=== PATIENT | female | born 1990 | race American Indian/Alaskan Native ===

== ENCOUNTER 2020-01-21 04:51 | Outpatient (CLI) | payer MEDICAID ==
[2020-01-21] MEDS ORDERED: LACTATED RINGERS 500 ML IV ONE (05:09)
[2020-01-21] MEDS ORDERED: ACETAMINOPHEN 500 MG TAB PO ONE (05:48)
--- NOTE | 2020-01-21 06:56 | Cat Scan Report ---
CT HEAD WITHOUT CONTRAST HISTORY: MAIN: Fall, POSTERIOR HEAD PAIN. COMPARISON: None TECHNIQUE: CT imaging of the head was performed in the axial, sagittal, and coronal projections and bone algori thm in axial projection in the soft tissue algorithm. All CT scans at this location are performed using CT dose reduction for ALARA by means of automated e xposure control. CONTRAST: None. FINDINGS: Cerebral and Cerebellar Hemispheres: No evidence of mass or mass effect. No midline shift. No acute hemorrhage. No acute cortical infarction. No extra-axial fluid collection. Ventricles: Normal in size and configuration for age. Osseous Structures: No significant abnormality. Visualized Paranasal Sinuses: No significant abnormality. Additional Findings: None IMPRESSION: 1. No acute intracranial abnormality. NOTE: Acute infarct may not be visible by noncontrast CT. Signer Name: Elier Luu MD Signed: 01/21/2020 6:52 AM Workstation Name: [id number]
--- NOTE | 2020-01-21 08:02 | Ultrasound Report ---
ULTRASOUND OBSTETRIC Indication: 3rd trimester fall Findings: There is a single, living intrauterine . heart rate is identified at 140 bpm There is a crescent shaped hypoechoic fluid collection with color-flow present along the lower uterin e segment. Impression: [place]-shaped hypoechoic fluid collection with color-flow as noted, recommend clinical correlation and follow-up imaging Signer Name: Elier Luu MD Signed: 01/21/2020 7:58 AM Workstation Name: [id number]
[2020-01-21] MEDS ORDERED: LACTATED RINGERS 2,000 ML ONE (09:57)
[2020-01-21 10:03] VITALS: BP 89/51
[2020-01-21 10:23] LABS: Basophils % (Auto) 0.2 % (0.0-1.8); Eosinophils # (Auto) 0.1 K/mm3 (0.0-0.4); Eosinophils % (Auto) 0.7 % (0.0-4.3); Hematocrit 27.3 % (30.3-42.9); Hemoglobin 9.6 gm/dl (10.1-14.3); Lymphocytes # (Auto) 1.4 K/mm3 (1.2-5.4); Lymphocytes % (Auto) 12.1 % (13.4-35.0); Mean Corpuscular HGB Conc 35 % (30-34); Mean Corpuscular Volume 92 fl (79-97); Monocytes # (Auto) 0.6 K/mm3 (0.0-0.8); Monocytes % (Auto) 5.6 % (0.0-7.3); Platelet Count 205 K/mm3 (140-440); Red Blood Count 2.98 M/mm3 (3.65-5.03); Red Cell Distribution Width 12.7 % (13.2-15.2)
--- NOTE | 2020-01-21 11:07 | Ultrasound Report ---
Biophysical profile. HISTORY: Pain status post fall. FINDINGS: Biophysical profile is normal at 8/8. heart tones are 125 bpm. Signer Name: Lazaro Steward MD Signed: 01/21/2020 11:03 AM Workstation Name: [id number]
[2020-01-21] MEDS ORDERED: MORPHINE 2 MG/1 ML INJ IV ONE (11:53)
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
== END 2020-01-21 13:45 | disposition home or self-care (01) ==
LOC: TRG 04:51
PROVIDERS: ATTEND Obstetrics & Gynecology
DX: O26.893 Other specified pregnancy related conditions, third trimester (principal); R10.2 Pelvic and perineal pain; R51 Headache; M54.9 Dorsalgia, unspecified; M79.659 Pain in unspecified thigh; O47.03 False labor before 37 completed weeks of gestation, third trimester; O10.913 Unspecified pre-existing hypertension complicating pregnancy, third trimester; O99.333 Smoking (tobacco) complicating pregnancy, third trimester; F17.200 Nicotine dependence, unspecified, uncomplicated; Z3A.31 31 weeks gestation of pregnancy; W10.8XXA Fall (on) (from) other stairs and steps, initial encounter; Y93.89 Activity, other specified; Y92.89 Other specified places as the place of occurrence of the external cause; Y99.8 Other external cause status
CPT/HCPCS: 36415; 70450; 76815; 76819; 85025; 86850; 86900; 86901; 96374; J2270; J7120

== ENCOUNTER 2020-03-18 20:53 | Inpatient (IN) | payer MEDICAID ==
[2020-03-19] MEDS ORDERED: DINOPROSTONE 10 MG VAG SUPP VG ONE (00:05)
[2020-03-19] MEDS ORDERED: ePHEDrine SULFATE 50 MG/1 ML INJ IV PRN ×2 (00:24→07:32)
[2020-03-19] MEDS ORDERED: NalbUPHINE 10 MG/1 ML INJ IV PRN (00:24)
[2020-03-19] MEDS ORDERED: TERBUTALINE 1 MG/1 ML INJ SUB-Q PRN (00:24)
[2020-03-19] MEDS ORDERED: fentaNYL 100 MCG/2 ML INJ IV PRN (00:24)
[2020-03-19] MEDS ORDERED: PROMETHAZINE 25 MG TAB PO PRN ×2 (00:24→08:33)
[2020-03-19] MEDS ORDERED: MINERAL OIL 30 ML ORAL LIQD PO PRN (00:24)
[2020-03-19] MEDS ORDERED: ONDANSETRON 4 MG/2 ML INJ IV PRN ×2 (00:24→08:33)
[2020-03-19] MEDS ORDERED: LIDOCAINE (2%) 20 MG/1 ML VIAL 20 ML MDV INFILTRATI ONE ×2 (00:24→06:36)
[2020-03-19] MEDS ORDERED: BUTORPHANOL 2 MG/1 ML INJ IV PRN ×2 (00:24)
[2020-03-19] MEDS ORDERED: TERBUTALINE 1 MG/1 ML INJ IVP PRN (00:24)
[2020-03-19] MEDS: LACTATED RINGERS 1,000 ML IV SCH ×2 (00:25→07:43)
--- NOTE | 2020-03-19 00:32 | History and Physical Report ---
History of Present Illness Date of examination: 03/19/20 Date of admission: 03/18/20 20:53 Chief complaint: IOL for chTN History of present illness: This is a 29 yo at 39 weeks. She is patient of [facility]. SHe was recommneded by Fredy lerma IOL for chronic HTN. Patient had +trich and delivered. She was seen by cardiology with hx of MA at age 21 and was cleared by cardiology. Patient was seen by vascular for suspected superficial venous thrombosis. Patient sustained a fall down a flight of stairs doing this . Past History Past Medical History: heart disease (MA at age 21), high cholesterol Past Surgical History: no surgical history [employer] History: trichomonas Family/Genetic History: none Social history: single. denies: smoking, alcohol abuse, prescription drug abuse - Obstetrical History Expected Date of Delivery: 03/20/20 Actual Gestation: 39 Week(s) 6 Day(s) : 3 Para: 1 Hx # Term Pregnancies: 1 Number of Pregnancies: 0 Spontaneous Abortions: 0 Induced : 0 Number of Living Children: 1 Medications and Allergies Allergies Allergy/AdvReac Type Severity Reaction Status Date / Time No Known Allergies Allergy Verified 01/21/20 05:09 Home Medications Medication Instructions Recorded Confirmed Last Taken Type Vitamin 1 dose PO QDAY 03/19/20 03/19/20 03/18/20 10:00 History Active Meds: Active Medications Lactated Ringer's (Lactated Ringers) 1,000 mls @ 125 mls/hr IV DIRECT JARRETT Review of Systems All systems: negative - Vital Signs Vital signs: Vital Signs Pulse BP 88 125/69 03/18/20 22:51 03/18/20 22:51 Temp Pulse Resp BP Pulse Ox 80 103/63 03/19/20 00:24 03/19/20 00:24 - Physical Exam Breasts: Positive: normal Cardiovascular: Regular rate, Normal S1 Lungs: Positive: Clear to auscultation, Normal air movement Abdomen: Positive: normal appearance, soft, normal bowel sounds. Negative: distention, tenderness, guarding Genitourinary (Female): Positive: normal external genitalia, normal perenium Vulva: both: normal Vagina: Positive: normal moisture Uterus: Positive: normal size, normal contour Anus/Rectum: Positive: normal perianal skin Extremities: Positive: normal Deep Tendon Reflex Grade: Normal +2 - Obstetrical FHR: category 1 Results All other labs normal. Assessment and Plan A/P IUP 39+6 weeks cHTN obesity hx of MA admit with IVF and labs initial start with cervidil
[2020-03-19] MEDS ORDERED: ZOLPIDEM 5 MG TAB PO PRN (00:33)
[2020-03-19 00:58] LABS: Hematocrit 32.9 % (30.3-42.9); Hemoglobin 11.4 gm/dl (10.1-14.3); Mean Corpuscular HGB Conc 35 % (30-34); Mean Corpuscular Volume 93 fl (79-97); Platelet Count 232 K/mm3 (140-440); Red Blood Count 3.55 M/mm3 (3.65-5.03); Red Cell Distribution Width 14.9 % (13.2-15.2)
[2020-03-19] MEDS ORDERED: LACTATED RINGERS 1,000 ML IV SCH (01:00)
[2020-03-19] MEDS ORDERED: OXYTOCIN DRIP 30 UNITS/500 ML BAG IV SCH (01:00)
[2020-03-19] MEDS ORDERED: AMPICILLIN/NS 2 GM/100 ML 2 GM/100 ML BAG IV ONE (05:43)
[2020-03-19] MEDS ORDERED: DEXMEDETOMIDINE 200 MCG/2 ML VIAL IV ONE (07:13)
[2020-03-19] MEDS ORDERED: NALOXONE 2 MG/2 ML INJ IV PRN (07:32)
--- NOTE | 2020-03-19 07:36 | Anesthesia Consultation ---
Anesthesia Consult and Med Hx Date of service: 03/19/20 - Airway Anesthetic Teeth Evaluation: Good, Partials Mental/Hyoid Distance: Adequate Mallampati Class: Class II Intubation Access Assessment: Good - Pulmonary Exam CTA: Yes - Cardiac Exam Cardiac Exam: RRR - Pre-Operative Health Status ASA Pre-Surgery Classification: ASA2, Emergency Proposed Anesthetic Plan: Epidural - Pulmonary Hx Asthma: No COPD: No Hx Pneumonia: No - Cardiovascular System Hx Hypertension: Yes Hx Heart Attack/AMI: Yes ([place] at 21, ) - Central Nervous System Hx Seizures: No Hx Psychiatric Problems: No - Endocrine Hx Renal Disease: No Hx End Stage Renal Disease: No Hx Hypothyroidism: No Hx Hyperthyroidism: No - Hematic Hx Anemia: Yes Hx Sickle Cell Disease: No - Other Systems Hx Alcohol Use: No
--- NOTE | 2020-03-19 07:38 | Anesthesia Day of Surgery ---
Anesthesia Day of Surgery - Day of Surgery Patient Examined: Yes Patient H&P Reviewed: Yes Patient is NPO: Yes
--- NOTE | 2020-03-19 07:39 | Progress Note ---
Labor Epidural - Labor Epidural Start Time: 07:15 Stop Time: 07:21 Performed by:: CHRISTAL ODOM Procedure: Patient is requesting a laboring epidural for laboring pain. Patient IDed, H&P reviewed, all questions and concerns were answered, and consent was signed. Timeout was performed at bedside. Patient in sitting position. Sterile prep and drape was performed. 3 ml of 1% lidocaine skin wheal at L 3- L 4. 18-gauge Touhy epidural needle was advanced to loss of resistance with air technique. Negative CSF negative blood. Epidural catheter advanced to 15 centimeters. Negative aspiration negative test dose. Sterile dressing applied. Patient tolerated procedure.
[2020-03-19] MEDS ORDERED: fentaNYL-BUPIV 2 MCG/ML-0.125% 200 MCG/100 ML BAG EPIDURAL SCH (08:00)
--- NOTE | 2020-03-19 08:28 | Procedure Note ---
OB Delivery Note - Delivery Date of Delivery: 03/19/20 Surgeon: ARYA GUTIERREZ Estimated blood loss: other (400cc) - Vaginal Delivery presentation: vertex Delivery position: OA Delivery induction: cervidil Delivery augmentation: rupture of membranes Delivery monitor: external FHT, external uterine Route of delivery: Delivery placenta: spontaneous Delivery cord: nuchal cord (tight x2), 3 umbilical vessels Episiotomy: none Delivery laceration: 1st degree Delivery repair: vicryl Anesthesia: epidural Delivery comments: Pt progressed to complete/complete/+1 and pushed to deliver a viable female over intact perineum via spontaneous vaginal delivery under epidural anesthesia. Head delivered MOR. It was noted a double tight nuchal cord x2 and reduced after clamped and cut The shoulders and body delivered . was bulb suctioned at delivery. Cord was clamped and cut and handed to NICU staff in attendance. Placenta delivered spontaneously. Survey of perineum reveals first degree lac and periurethral repaired with 2-0 vicryl. - A at 1 minute: 8 at 5 minutes: 9 Gender: Female (5 pound 13 oz)
[2020-03-19] MEDS: OXYTOCIN 20 UNIT/1000ML DRIP 20 UNITS/1,000 ML BAG IV SCH ×2 (08:30→09:09)
[2020-03-19] MEDS ORDERED: WITCH HAZEL/ GLYCERIN PAD TP PRN (08:33)
[2020-03-19] MEDS ORDERED: KETOROLAC 30 MG/1 ML INJ IV PRN (08:33)
[2020-03-19] MEDS ORDERED: MAGNESIUM HYDROXIDE (MOM) ORAL LIQD UDC PO PRN (08:33)
[2020-03-19] MEDS ORDERED: HYDROcodone/ACETAMINOPHEN 5-325 MG TAB PO PRN (08:33)
[2020-03-19] MEDS ORDERED: PROMETHAZINE 25 MG RECT SUPP PR PRN (08:33)
[2020-03-19] MEDS ORDERED: ACETAMINOPHEN 325 MG TAB PO PRN (08:33)
[2020-03-19] MEDS ORDERED: LANOLIN/ZINC/DIMETHICONE (LANSINOH) 7 GM TP PRN (08:33)
[2020-03-19] MEDS ORDERED: diphenhydrAMINE 25 MG CAP PO PRN (08:33)
[2020-03-19] MEDS ORDERED: oxyCODONE /ACETAMINOPHEN 5-325MG TAB PO PRN (08:33)
[2020-03-19] MEDS ORDERED: PRENATAL VIT27-FE FUMARATE-FOLIC ACID VIT TAB PO SCH (10:00)
--- NOTE | 2020-03-19 10:44 | Post Anesthesia Evaluation ---
- Post Anesthesia Evaluation Patient Participated: Yes Airway Patent: Yes Stable Respiratory Function: Yes Nausea/Vomiting: No Temp > 96.8F: Yes Pain Manageable: Yes Adequeate Hydration: Yes Anesthesia Complications: No Block Receding Appropriately: Yes Patient on Ventilator: No
[2020-03-19] MEDS: IBUPROFEN 600 MG TAB PO SCH ×2 (18:03→23:59)
[2020-03-19 20:59] LABS: Hematocrit 28.6 % (30.3-42.9); Hemoglobin 9.6 gm/dl (10.1-14.3)
[2020-03-19] MEDS: DOCUSATE SODIUM 100 MG CAP PO SCH (22:06)
[2020-03-19] MEDS: SENNOSIDES/DOCUSATE SODIUM 8.6/50 MG TAB PO SCH (22:23)
[2020-03-20] MEDS: IBUPROFEN 600 MG TAB PO SCH ×3 (06:09→17:41)
[2020-03-20] MEDS ORDERED: MEASLES, MUMPS & RUBELLA 12,500 UNIT/0.5 ML VACCINE SUB-Q ONE (08:00)
[2020-03-20] MEDS ORDERED: DIPHtheria,PERTUSSIS(ACELL),TETANUS VACCINE/PF 0.5 ML VIAL IM ONE (08:00)
--- NOTE | 2020-03-20 08:33 | Progress Note ---
Assessment and Plan A: PPD1 s/p Vital signs stable Acute anemia due to blood loss P: Ferrous sulfate supplementation Routine pp care Anticipate d/c to home on PPD2 Subjective - Subjective Date of service: 03/20/20 Principal diagnosis: s/p Interval history: PPD1 s/p Patient reports: appetite normal, voiding normally, pain well controlled, ambulating normally [place]: doing well Objective - Vital Signs Latest vital signs: Vital Signs Temp Pulse Resp BP Pulse Ox 03/20/20 06:09 20 03/19/20 23:59 20 03/19/20 23:38 98.2 F 72 20 106/53 97 03/19/20 20:10 98.4 F 82 18 107/47 98 03/19/20 16:00 98.1 F 81 18 90/44 99 03/19/20 10:06 67 100 03/19/20 10:05 72 113/64 03/19/20 10:01 68 100 03/19/20 09:56 64 99 03/19/20 09:51 66 100 03/19/20 09:50 69 109/59 03/19/20 09:46 63 99 03/19/20 09:41 66 97 03/19/20 09:36 69 99 03/19/20 09:35 67 103/57 03/19/20 09:31 73 99 03/19/20 09:26 82 99 03/19/20 09:21 75 100 03/19/20 09:20 77 108/56 03/19/20 09:16 76 99 03/19/20 09:11 80 99 03/19/20 09:06 76 99 03/19/20 09:05 86 116/62 03/19/20 09:01 79 99 03/19/20 08:56 75 99 03/19/20 08:51 74 100 03/19/20 08:50 79 108/57 03/19/20 08:46 85 99 03/19/20 08:41 75 99 03/19/20 08:36 85 118/62 100 Intake and Output 03/19/20 03/20/20 03/20/20 23:59 07:59 15:59 Intake Total 480 600 Output Total 500 Balance -20 600 Intake: Oral 240 Intake, Free Water 480 360 Output: Urine 500 Void 500 Other: Total, Intake Amount 240 Total, Output Amount 500 # Voids Void 1 - Exam Lungs: Present: Normal air movement Abdomen: Present: soft. Absent: distention Uterus: Present: firm, fundal height below umbilicus. Absent: bogginess Extremities: Present: normal - Labs Labs: Abnormal lab results 03/19/20 Range/Units 20:47 Hgb 9.6 L (10.1-14.3) gm/dl Hct 28.6 L (30.3-42.9) %
[2020-03-20] MEDS: FERROUS SULFATE 325 MG TAB PO SCH (11:57)
[2020-03-20] MEDS: DOCUSATE SODIUM 100 MG CAP PO SCH (11:58)
[2020-03-20] MEDS: SENNOSIDES/DOCUSATE SODIUM 8.6/50 MG TAB PO SCH (22:00)
[2020-03-21] MEDS: FERROUS SULFATE 325 MG TAB PO SCH (00:38)
[2020-03-21] MEDS: IBUPROFEN 600 MG TAB PO SCH ×2 (00:38→05:50)
[2020-03-21] MEDS: DOCUSATE SODIUM 100 MG CAP PO SCH (00:38)
--- NOTE | 2020-03-21 07:50 | Progress Note ---
Assessment and Plan A: PPD2 s/p Vital signs stable Acute anemia due to blood loss P: Ferrous sulfate supplementation Routine pp care d/c to home today Subjective - Subjective Date of service: 03/21/20 Principal diagnosis: s/p Interval history: PPD2 s/p Patient reports: appetite normal, voiding normally, pain well controlled, ambulating normally [place]: doing well, nursing well Objective - Vital Signs Latest vital signs: Vital Signs Temp Pulse Resp BP BP Pulse Ox 03/21/20 06:50 18 03/21/20 05:50 18 03/21/20 01:38 18 03/21/20 00:38 18 03/21/20 00:30 98.5 F 78 17 114/57 97 03/21/20 00:00 98.7 F 78 18 144/57 98 03/20/20 16:47 97.9 F 77 18 113/64 97 03/20/20 08:11 75 104/65 97 Intake and Output 03/20/20 03/20/20 03/21/20 15:59 23:59 07:59 Other: # Voids Void 1 1 - Exam Lungs: Present: Normal air movement Abdomen: Present: soft. Absent: distention Uterus: Present: firm, fundal height below umbilicus. Absent: bogginess Extremities: Present: normal
--- NOTE | 2020-03-21 07:53 | Discharge Summary ---
Providers - Providers Date of Admission: 03/18/20 20:53 Date of discharge: 03/21/20 Attending physician: ARYA GUTIERREZ MD Primary care physician: ARYA GUTIERREZ MD Hospitalization Reason for admission: induction of labor (for chronic HTN with history SD at age 21), IUP at term Delivery: Laceration: 1st degree Other procedures: none complications: none Discharge diagnosis: IUP at term delivered Hospital course: Pt arrived for IOL secondary to cHTN. She progressed to . course uncomplicated. Condition at discharge: Good Disposition: DC-01 TO HOME OR SELFCARE Plan - Discharge Medications Prescriptions: Ibuprofen [Motrin] 600 mg PO Q8H PRN #30 tablet PRN Reason: Pain - Provider Discharge Summary Activity: routine, no sex for 6 weeks, no heavy lifting 4 weeks, no strenuous exercise Diet: routine Instructions: routine Additional instructions: [] Smoking cessation referral if applicable(refer to patient education folder for contact #) [] Refer to [facility] Booklet Call your doctor immediately for: * Fever > 100.5 * Heavy vaginal bleeding ( >1 pad per hour) * Severe persistent headache * Shortness of breath * Reddened, hot, painful area to leg or breast * Drainage or odor from incision. * Keep incision clean and dry at all times and follow doctor's instructions regarding bathing/showering - Follow up plan Follow up: ARYA GUTIERREZ MD [Primary Care Provider] - 7 Days Forms: [facility] Discharge Summary
[2020-03-21 12:56] VITALS: BP 123/66
== END 2020-03-21 14:00 | disposition home or self-care (01) | DRG 774 ==
LOC: LD 20:53 → OB 03-19 10:37
PROVIDERS: ADMIT Obstetrics & Gynecology; ATTEND Obstetrics & Gynecology
PROC: 10E0XZZ Delivery of Products of Conception, External Approach (ICD-10-PCS; principal; 2020-03-19)
PROC: 3E0R3BZ Introduction of Anesthetic Agent into Spinal Canal, Percutaneous Approach (ICD-10-PCS; 2020-03-19)
PROC: 00HU33Z Insertion of Infusion Device into Spinal Canal, Percutaneous Approach (ICD-10-PCS; 2020-03-19)
PROC: 0HQ9XZZ Repair Perineum Skin, External Approach (ICD-10-PCS; 2020-03-19)
PROC: 3E0P7VZ Introduction of Hormone into Female Reproductive, Via Natural or Artificial Opening (ICD-10-PCS; 2020-03-19)
PROC: 3E0234Z Introduction of Serum, Toxoid and Vaccine into Muscle, Percutaneous Approach (ICD-10-PCS; 2020-03-20)
PROC: 3E0134Z Introduction of Serum, Toxoid and Vaccine into Subcutaneous Tissue, Percutaneous Approach (ICD-10-PCS; 2020-03-20)
DX: O69.81X0 Labor and delivery complicated by cord around neck, without compression, not applicable or unspecified (principal); O10.92 Unspecified pre-existing hypertension complicating childbirth; O99.214 Obesity complicating childbirth; E66.9 Obesity, unspecified; Z3A.39 39 weeks gestation of pregnancy; Z37.0 Single live birth; Z23 Encounter for immunization; O70.0 First degree perineal laceration during delivery; O90.81 Anemia of the puerperium; D62 Acute posthemorrhagic anemia; I25.2 Old myocardial infarction
CPT/HCPCS: 36415; 59200; 85014; 85018; 85027; 86592; 86850; 86900; 86901; 88307; 90715; G0378; J0290; J0595; J2405; J2590; J3490; J7120

== ENCOUNTER 2020-05-27 04:19 | Observation (INO) | payer MEDICAID ==
[2020-05-27] MEDS ORDERED: levETIRAcetam 1000 MG/NS 0.75% 1,000 MG/100 ML BAG IV ONE (04:50)
[2020-05-27 05:28] LABS: Basophils % (Auto) 0.6 % (0.0-1.8); Eosinophils # (Auto) 0.1 K/mm3 (0.0-0.4); Eosinophils % (Auto) 1.5 % (0.0-4.3); Hematocrit 39.9 % (30.3-42.9); Hemoglobin 13.3 gm/dl (10.1-14.3); Lymphocytes # (Auto) 1.6 K/mm3 (1.2-5.4); Lymphocytes % (Auto) 27.1 % (13.4-35.0); Mean Corpuscular HGB Conc 33 % (30-34); Mean Corpuscular Volume 97 fl (79-97); Monocytes # (Auto) 0.4 K/mm3 (0.0-0.8); Platelet Count 217 K/mm3 (140-440); Red Blood Count 4.13 M/mm3 (3.65-5.03); Red Cell Distribution Width 13.4 % (13.2-15.2)
--- NOTE | 2020-05-27 05:35 | Cat Scan Report ---
CT head without contrast INDICATION : Seizures TECHNIQUE: Axial imaging performed from the skull apex through the skull base without the use of con trast. All CT examinations performed at this facility utilize dose modulation, iterative reconstruct ion or weight-based dosing, when appropriate, to reduce radiation dose to as low as reasonably achiev able. COMPARISON: 01/21/2020 FINDINGS: No acute intracranial hemorrhage or parenchymal abnormality. Ventricles are normal in si ze and appear symmetric. Soft tissues including the orbits appear normal. No acute osseous abnorm ality. Sinuses and mastoid air cells are clear. IMPRESSION: No acute abnormality. Signer Name: Suresh Cardenas MD Signed: 05/27/2020 5:30 AM Workstation Name: [email or web address]
[2020-05-27 06:36] LABS: BUN/Creatinine Ratio 6; Blood Urea Nitrogen 4 mg/dL (7-17); Calcium 8.8 mg/dL (8.4-10.2); Hemolysis Index 16
--- NOTE | 2020-05-27 07:47 | Emergency Department Report ---
ED Seizure HPI - General Chief Complaint: Seizure Stated Complaint: SEIZURE Time Seen by Provider: 05/27/20 06:20 Source: EMS Mode of arrival: Stretcher Limitations: Altered Mental Status - History of Present Illness Initial Comments: 30-year-old female with a history of hypertension and AK at age 21 and status post vaginal delivery March 19, 2020 as per medical record presents to the hospital status post seizures at home and in route to the hospital. Patient had a seizure at home and 2 seizures in route. Patient provided Ativan 2 mg IV. No previous history of seizures reported. Patient was sedated upon arrival to the ED and is sedated at time of my initial examination. - Related Data Home Medications Medication Instructions Recorded Confirmed Last Taken Vitamin 1 dose PO QDAY 03/19/20 03/19/20 03/18/20 10:00 Previous Rx's Medication Instructions Recorded Last Taken Type Ibuprofen [Motrin] 600 mg PO Q8H PRN #30 tablet 03/19/20 Unknown Rx Allergies Allergy/AdvReac Type Severity Reaction Status Date / Time No Known Allergies Allergy Verified 01/21/20 05:09 ED Review of Systems ROS: Stated complaint: SEIZURE Other details as noted in HPI Comment: All other systems reviewed and negative ED Past Medical Hx - Past Medical History Previous Medical History?: Yes Hx Hypertension: Yes Hx Heart Attack/AMI: Yes ([place] at 21, ) Hx Congestive Heart Failure: No Hx Diabetes: No Hx Deep Vein Thrombosis: No Hx Renal Disease: No Hx Sickle Cell Disease: No Hx Seizures: No Hx Asthma: No Hx COPD: No Hx HIV: No - Social History Smoking Status: Unknown if ever smoked - Medications Home Medications: Home Medications Medication Instructions Recorded Confirmed Last Taken Type Ibuprofen [Motrin] 600 mg PO Q8H PRN #30 tablet 03/19/20 Unknown Rx Vitamin 1 dose PO QDAY 03/19/20 03/19/20 03/18/20 10:00 History ED Physical Exam - General Limitations: Altered Mental Status - Other Other exam information: General: No acute distress Head: Atraumatic Eyes: normal appearance, pupils equal and reactive to light ENT: Moist mucous membranes Neck: Normal appearance, no midline tenderness Chest: Clear to auscultation bilaterally CV: Regular rate and rhythm Abdomen: Soft, normal bowel sounds, nontender, nondistended, no rebound or guarding Back: Normal inspection Extremity: Normal inspection, full range of motion Neuro: Lethargic/sedated, withdraws all extremities to noxious stimuli. Psych: Appropriate behavior Skin: No rash ED Course Vital Signs 05/27/20 05/27/20 05/27/20 04:51 05:45 06:00 Temperature 97.7 F Pulse Rate 86 69 Respiratory 18 18 18 Rate Blood Pressure 105/70 Blood Pressure 97/61 [Left] O2 Sat by Pulse 97 100 100 Oximetry 05/27/20 05/27/20 05/27/20 06:15 06:54 08:09 Temperature Pulse Rate 73 69 69 Respiratory 18 18 20 Rate Blood Pressure Blood Pressure 97/65 97/61 129/84 [Left] O2 Sat by Pulse 100 99 Oximetry ED Medical Decision Making - Lab Data Result diagrams: 05/27/20 05:19 05/27/20 05:19 Lab Results 05/27/20 05/27/20 05/27/20 Range/Units 05:19 05:19 05:19 WBC 5.9 (4.5-11.0) K/mm3 RBC 4.13 (3.65-5.03) M/mm3 Hgb 13.3 (10.1-14.3) gm/dl Hct 39.9 (30.3-42.9) % MCV 97 (79-97) fl MCH 32 (28-32) pg MCHC 33 (30-34) % RDW 13.4 (13.2-15.2) % Plt Count 217 (140-440) K/mm3 Lymph % (Auto) 27.1 (13.4-35.0) % [place] % (Auto) 7.0 (0.0-7.3) % Eos % (Auto) 1.5 (0.0-4.3) % Baso % (Auto) 0.6 (0.0-1.8) % Lymph # 1.6 (1.2-5.4) K/mm3 [place] # 0.4 (0.0-0.8) K/mm3 Eos # 0.1 (0.0-0.4) K/mm3 Baso # 0.0 (0.0-0.1) K/mm3 Seg Neutrophils % 63.8 (40.0-70.0) % Seg Neutrophils # 3.8 (1.8-7.7) K/mm3 Sodium 141 (137-145) mmol/L Potassium 3.9 (3.6-5.0) mmol/L Chloride 105.3 (98-107) mmol/L Carbon Dioxide 20 L (22-30) mmol/L Anion Gap 20 mmol/L BUN 4 L (7-17) mg/dL Creatinine 0.7 (0.7-1.2) mg/dL Estimated GFR > 60 ml/min BUN/Creatinine Ratio 6 % Glucose 90 (65-100) mg/dL Calcium 8.8 (8.4-10.2) mg/dL Magnesium 2.00 (1.7-2.3) mg/dL HCG, Qual (Negative) 05/27/20 Range/Units 05:19 WBC (4.5-11.0) K/mm3 RBC (3.65-5.03) M/mm3 Hgb (10.1-14.3) gm/dl Hct (30.3-42.9) % MCV (79-97) fl MCH (28-32) pg MCHC (30-34) % RDW (13.2-15.2) % Plt Count (140-440) K/mm3 Lymph % (Auto) (13.4-35.0) % [place] % (Auto) (0.0-7.3) % Eos % (Auto) (0.0-4.3) % Baso % (Auto) (0.0-1.8) % Lymph # (1.2-5.4) K/mm3 [place] # (0.0-0.8) K/mm3 Eos # (0.0-0.4) K/mm3 Baso # (0.0-0.1) K/mm3 Seg Neutrophils % (40.0-70.0) % Seg Neutrophils # (1.8-7.7) K/mm3 Sodium (137-145) mmol/L Potassium (3.6-5.0) mmol/L Chloride (98-107) mmol/L Carbon Dioxide (22-30) mmol/L Anion Gap mmol/L BUN (7-17) mg/dL Creatinine (0.7-1.2) mg/dL Estimated GFR ml/min BUN/Creatinine Ratio % Glucose (65-100) mg/dL Calcium (8.4-10.2) mg/dL Magnesium (1.7-2.3) mg/dL HCG, Qual Negative (Negative) - Radiology Data Radiology results: report reviewed CT head without contrast INDICATION : Seizures TECHNIQUE: Axial imaging performed from the skull apex through the skull base without the use of co ntrast. All CT examinations performed at this facility utilize dose modulation, iterative reconstruction or weight-based dosing, when appropriate, to reduce radiation dose to as low as reasonably achievable. COMPARISON: 01/21/2020 FINDINGS: No acute intracranial hemorrhage or parenchymal abnormality. Ventricles are normal in size and appear symmetric. Soft tissues including the orbits appear normal. No acute osseous abnormality. Sinuses and mastoid air cells are clear. IMPRESSION: No acute abnormality. - Medical Decision Making Patient has been in the ED for greater than 3 hours and is extremely sedated and has been that way since initial ED arrival. Patient with no history of seizures had a seizure at home and multiple seizures in route and did receive Ativan 2 mg prior to arrival. Is unclear if patient is altered due to being postictal or oversedated with Ativan. Patient did receive Keppra IV. CBC BMP and CT head unremarkable. Uds pending. Will be admitted to the hospitalist service Critical Care Time: No Critical care attestation.: If time is entered above; I have spent that time in minutes in the direct care of this critically ill patient, excluding procedure time. ED Disposition Clinical Impression: Seizures, New onset seizure, Postictal state Disposition: - TO HOME OR SELFCARE Is pt being admited?: Yes Condition: Stable Time of Disposition: 07:47
--- NOTE | 2020-05-27 08:40 | History and Physical Report ---
<PRASHANT LAFLEUR - Last Filed: 05/27/20 15:04> History of Present Illness Date of examination: 05/27/20 Chief complaint: seizure History of present illness: 30 year old female with HTN, [place] (2010) who presented to the ED via EMS for seizures. Of note she had vaginal delivery March 19, 2020 as per medical records. She presents to the hospital status post 2 seizures at home and 2 while in route to the hospital. She was given 2mg Ativan prior to arrival. ED workup included unremarkable labs, negative HCG and syphilis antibody test, IV Keppra, pending UDS and CT head with no acute abnormalities. At the time of my exam she only opened her eyes briefly to physical and verbal stimulation. On my subsequent exam she was still very lethargic but able to answer simple questions about her history. She denies any chest pain, shortness of breath, nausea or vomiting, any recent sick contacts or COVID-19 exposure. She is being admitted to the hospital service under observation, neurology consulted and MRI head pending. Her mother was contacted via telephone who lives in [place] and states the patients only medical history is a heart problem (possible blockage but she does not know, states cardiac workup was delayed due to ) and "fainting spells" (last one was over 5 years ago). Denies any seizure history or surgeries. Past History Past Medical History: acute [place], hypertension. denies: diabetes, seizures Past Surgical History: No surgical history Social history: full code. denies: smoking, alcohol abuse Family history: no significant family history Medications and Allergies Allergies Allergy/AdvReac Type Severity Reaction Status Date / Time No Known Allergies Allergy Verified 01/21/20 05:09 Home Medications Medication Instructions Recorded Confirmed Last Taken Type Ibuprofen [Motrin] 600 mg PO Q8H PRN #30 tablet 03/19/20 Unknown Rx Vitamin 1 dose PO QDAY 03/19/20 03/19/20 03/18/20 10:00 History Active Meds: Active Medications Acetaminophen (Tylenol) 650 mg PO Q4H PRN PRN Reason: Pain MILD(1-3)/Fever >100.5/ROBIN Sodium Chloride (Nacl 0.9% 1000 Ml) 1,000 mls @ 100 mls/hr IV DIRECT JARRETT Levetiracetam 500 mg/ Dextrose 105 mls @ 400 mls/hr IV Q12HR JARRETT Ondansetron HCl (Zofran) 4 mg IV Q6HR PRN PRN Reason: Nausea And Vomiting Sodium Chloride (Sodium Chloride Flush Syringe 10 Ml) 10 ml IV BID AJRRETT Sodium Chloride (Sodium Chloride Flush Syringe 10 Ml) 10 ml IV PRN PRN PRN Reason: LINE FLUSH Stop: 06/06/20 08:59 Review of Systems ROS unobtainable: due to mental status Constitutional: no fever, no chills Cardiovascular: no chest pain, no edema, no shortness of breath Respiratory: no cough, no shortness of breath Gastrointestinal: no abdominal pain, no nausea, no vomiting Exam - Constitutional Vitals: Temp Pulse Resp BP Pulse Ox 97.7 F 69 20 129/84 99 05/27/20 04:51 05/27/20 08:09 05/27/20 08:09 05/27/20 08:09 05/27/20 08:09 General appearance: Present: no acute distress (very lethergic) - EENT Eyes: Present: PERRL, EOM intact ENT: hearing intact - Respiratory Respiratory effort: normal Respiratory: bilateral: CTA - Cardiovascular Rhythm: regular Heart Sounds: Present: S1 & S2. Absent: systolic murmur, diastolic murmur - Extremities Extremities: no ischemia, pulses intact, pulses symmetrical, No edema, normal temperature, normal color Peripheral Pulses: within normal limits - Abdominal General gastrointestinal: Present: soft, non-tender, non-distended, normal bowel sounds - Integumentary Integumentary: Present: clear, warm, dry - Psychiatric Psychiatric: other (very lethergic) - Neurologic Neurologic: moves all extremities - Allied Health Allied health notes reviewed: nursing HEART Score - HEART Score History: Slightly suspicious EKG: Normal Age: < 45 Risk factors: 1-2 risk factors Troponin: < normal limit HEART Score: 1 Results - Labs CBC & Chem 7: 05/27/20 05:19 05/27/20 05:19 Labs: Laboratory Last Values WBC 5.9 K/mm3 (4.5-11.0) 05/27/20 05:19 RBC 4.13 M/mm3 (3.65-5.03) 05/27/20 05:19 Hgb 13.3 gm/dl (10.1-14.3) 05/27/20 05:19 Hct 39.9 % (30.3-42.9) 05/27/20 05:19 MCV 97 fl (79-97) 05/27/20 05:19 MCH 32 pg (28-32) 05/27/20 05:19 MCHC 33 % (30-34) 05/27/20 05:19 RDW 13.4 % (13.2-15.2) 05/27/20 05:19 Plt Count 217 K/mm3 (140-440) 05/27/20 05:19 Lymph % (Auto) 27.1 % (13.4-35.0) 05/27/20 05:19 [place] % (Auto) 7.0 % (0.0-7.3) 05/27/20 05:19 Eos % (Auto) 1.5 % (0.0-4.3) 05/27/20 05:19 Baso % (Auto) 0.6 % (0.0-1.8) 05/27/20 05:19 Lymph # 1.6 K/mm3 (1.2-5.4) 05/27/20 05:19 [place] # 0.4 K/mm3 (0.0-0.8) 05/27/20 05:19 Eos # 0.1 K/mm3 (0.0-0.4) 05/27/20 05:19 Baso # 0.0 K/mm3 (0.0-0.1) 05/27/20 05:19 Seg Neutrophils % 63.8 % (40.0-70.0) 05/27/20 05:19 Seg Neutrophils # 3.8 K/mm3 (1.8-7.7) 05/27/20 05:19 Sodium 141 mmol/L (137-145) 05/27/20 05:19 Potassium 3.9 mmol/L (3.6-5.0) 05/27/20 05:19 Chloride 105.3 mmol/L (98-107) 05/27/20 05:19 Carbon Dioxide 20 mmol/L (22-30) L 05/27/20 05:19 Anion Gap 20 mmol/L 05/27/20 05:19 BUN 4 mg/dL (7-17) L 05/27/20 05:19 Creatinine 0.7 mg/dL (0.7-1.2) 05/27/20 05:19 Estimated GFR > 60 ml/min 05/27/20 05:19 BUN/Creatinine Ratio 6 % 05/27/20 05:19 Glucose 90 mg/dL (65-100) 05/27/20 05:19 Calcium 8.8 mg/dL (8.4-10.2) 05/27/20 05:19 Magnesium 2.00 mg/dL (1.7-2.3) 05/27/20 05:19 HCG, Qual Negative (Negative) 05/27/20 05:19 - Imaging and Cardiology EKG: report reviewed CT Scan - head: report reviewed MRI - abdomen: pending - Diagnostic Impressions Diagnostic Impressions: 05/27 CT Head: No acute abnormality. Quintero/IV: IV Catheter Type [Right INT / Saline Lock Antecubital] Assessment and Plan - Patient Problems (1) Seizures Current Visit: Yes Status: Acute Plan to address problem: -UDS ordered in ED - Neurology consult - MRI brain ordered - Keppra IV BID - NPO until swallow eval - MIVF - Fall Precautions - Aspiration precaution - Seizures precautions - Supplemental oxygenation as needed (2) Postictal state Current Visit: Yes Status: Acute Plan to address problem: - Fall, Seizure, Aspiration precautions - Supportive care - Supplemental oxygenation as needed (3) DVT prophylaxis Current Visit: Yes Status: Acute Plan to address problem: - SCDs while in bed (4) Full code status Current Visit: Yes Status: Acute <PJ DAWSON - Last Filed: 05/27/20 19:50> History of Present Illness Date of admission: 05/27/20 08:19 Medications and Allergies Active Meds: Active Medications Acetaminophen (Tylenol) 650 mg PO Q4H PRN PRN Reason: Pain MILD(1-3)/Fever >100.5/ROBIN Last Admin: 05/27/20 19:14 Dose: 650 mg Documented by: Levetiracetam 500 mg/ Dextrose 105 mls @ 400 mls/hr IV Q12HR JARRETT Ondansetron HCl (Zofran) 4 mg IV Q6HR PRN PRN Reason: Nausea And Vomiting Sodium Chloride (Sodium Chloride Flush Syringe 10 Ml) 10 ml IV BID JARRETT Sodium Chloride (Sodium Chloride Flush Syringe 10 Ml) 10 ml IV PRN PRN PRN Reason: LINE FLUSH Stop: 06/06/20 08:59 Exam - Constitutional Vitals: Temp Pulse Resp BP Pulse Ox 97.7 F 81 13 126/87 100 05/27/20 04:51 05/27/20 17:31 05/27/20 17:31 05/27/20 17:31 05/27/20 17:31 Results - Labs CBC & Chem 7: 05/27/20 05:19 05/27/20 05:19 Labs: Laboratory Last Values WBC 5.9 K/mm3 (4.5-11.0) 05/27/20 05:19 RBC 4.13 M/mm3 (3.65-5.03) 05/27/20 05:19 Hgb 13.3 gm/dl (10.1-14.3) 05/27/20 05:19 Hct 39.9 % (30.3-42.9) 05/27/20 05:19 MCV 97 fl (79-97) 05/27/20 05:19 MCH 32 pg (28-32) 05/27/20 05:19 MCHC 33 % (30-34) 05/27/20 05:19 RDW 13.4 % (13.2-15.2) 05/27/20 05:19 Plt Count 217 K/mm3 (140-440) 05/27/20 05:19 Lymph % (Auto) 27.1 % (13.4-35.0) 05/27/20 05:19 [place] % (Auto) 7.0 % (0.0-7.3) 05/27/20 05:19 Eos % (Auto) 1.5 % (0.0-4.3) 05/27/20 05:19 Baso % (Auto) 0.6 % (0.0-1.8) 05/27/20 05:19 Lymph # 1.6 K/mm3 (1.2-5.4) 05/27/20 05:19 [place] # 0.4 K/mm3 (0.0-0.8) 05/27/20 05:19 Eos # 0.1 K/mm3 (0.0-0.4) 05/27/20 05:19 Baso # 0.0 K/mm3 (0.0-0.1) 05/27/20 05:19 Seg Neutrophils % 63.8 % (40.0-70.0) 05/27/20 05:19 Seg Neutrophils # 3.8 K/mm3 (1.8-7.7) 05/27/20 05:19 Sodium 141 mmol/L (137-145) 05/27/20 05:19 Potassium 3.9 mmol/L (3.6-5.0) 05/27/20 05:19 Chloride 105.3 mmol/L (98-107) 05/27/20 05:19 Carbon Dioxide 20 mmol/L (22-30) L 05/27/20 05:19 Anion Gap 20 mmol/L 05/27/20 05:19 BUN 4 mg/dL (7-17) L 05/27/20 05:19 Creatinine 0.7 mg/dL (0.7-1.2) 05/27/20 05:19 Estimated GFR > 60 ml/min 05/27/20 05:19 BUN/Creatinine Ratio 6 % 05/27/20 05:19 Glucose 90 mg/dL (65-100) 05/27/20 05:19 Calcium 8.8 mg/dL (8.4-10.2) 05/27/20 05:19 Magnesium 2.00 mg/dL (1.7-2.3) 05/27/20 05:19 HCG, Qual Negative (Negative) 05/27/20 05:19 Quintero/IV: IV Catheter Type [Right INT / Saline Lock Antecubital] Assessment and Plan Assessment and plan: I saw and evaluated the patient. I agree with the findings and the plan of care as documented in the Nurse Practitioner's~note, with the following corrections and additions.
[2020-05-27] MEDS ORDERED: SODIUM CHLORIDE 0.9% 1000 ML 1,000 ML IV SCH (09:00)
[2020-05-27] MEDS ORDERED: ACETAMINOPHEN 325 MG TAB PO PRN (09:00)
[2020-05-27] MEDS ORDERED: ONDANSETRON 4 MG/2 ML INJ IV PRN (09:00)
--- NOTE | 2020-05-27 18:10 | Consultation ---
History of Present Illness Consult date: 05/27/20 Reason for Consult: X2 wittnessed seizure History of present illness: 30 year old female with HTN, [place] (2010) who presented to the ED via EMS for seizures. Of note she had vaginal delivery March 19, 2020 as per medical records. She presents to the hospital status post 2 seizures at home and 2 while in route to the hospital. She was given 2mg Ativan prior to arrival. ED workup included unremarkable labs, negative HCG and syphilis antibody test, IV Keppra, pending UDS and CT head with no acute abnormalities. At the time of my exam she only ope sally her eyes briefly to physical and verbal stimulation. On my subsequent exam she was still very lethargic but able to answer simple questions about her history. She denies any chest pain, shortness of breath, nausea or vomiting, any recent sick contacts or COVID-19 exposure. She is being admitted to the hospital service under observation, neurology consulted and MRI head pending. Her mother was contacted via telephone who lives in [place] and states the patients only medical history is a heart problem (possible blockage but she does not know, states cardiac workup was delayed due to ) and "fainting spells" (last one was over 5 years ago). Denies any seizure history or surgeries. Past History Past Medical History: acute [place], hypertension. denies: diabetes, seizures Past Surgical History: No surgical history Social history: full code. denies: smoking, alcohol abuse Family history: no significant family history Medications and Allergies Allergies Allergy/AdvReac Type Severity Reaction Status Date / Time No Known Allergies Allergy Verified 01/21/20 05:09 Home Medications Medication Instructions Recorded Confirmed Last Taken Type Ibuprofen [Motrin] 600 mg PO Q8H PRN #30 tablet 03/19/20 Unknown Rx Vitamin 1 dose PO QDAY 03/19/20 03/19/20 03/18/20 10:00 History Active Meds: Active Medications Acetaminophen (Tylenol) 650 mg PO Q4H PRN PRN Reason: Pain MILD(1-3)/Fever >100.5/ROBIN Sodium Chloride (Nacl 0.9% 1000 Ml) 1,000 mls @ 100 mls/hr IV DIRECT JARRETT Levetiracetam 500 mg/ Dextrose 105 mls @ 400 mls/hr IV Q12HR JARRETT Ondansetron HCl (Zofran) 4 mg IV Q6HR PRN PRN Reason: Nausea And Vomiting Sodium Chloride (Sodium Chloride Flush Syringe 10 Ml) 10 ml IV BID JARRETT Sodium Chloride (Sodium Chloride Flush Syringe 10 Ml) 10 ml IV PRN PRN PRN Reason: LINE FLUSH Stop: 06/06/20 08:59 Review of Systems ROS unobtainable: due to mental status Constitutional: no fever, no chills Cardiovascular: no chest pain, no edema, no shortness of breath Respiratory: no cough, no shortness of breath Gastrointestinal: no abdominal pain, no nausea, no vomiting Past History Past Medical History: acute [place], hypertension. denies: diabetes, seizures Past Surgical History: No surgical history Social history: full code. denies: smoking, alcohol abuse Family history: no significant family history Medications and Allergies Allergies Allergy/AdvReac Type Severity Reaction Status Date / Time No Known Allergies Allergy Verified 01/21/20 05:09 Home Medications Medication Instructions Recorded Confirmed Last Taken Type Ibuprofen [Motrin] 600 mg PO Q8H PRN #30 tablet 03/19/20 Unknown Rx Vitamin 1 dose PO QDAY 03/19/20 03/19/20 03/18/20 10:00 History Active Meds: Active Medications Acetaminophen (Tylenol) 650 mg PO Q4H PRN PRN Reason: Pain MILD(1-3)/Fever >100.5/ROBIN Sodium Chloride (Nacl 0.9% 1000 Ml) 1,000 mls @ 100 mls/hr IV DIRECT JARRETT Stop: 05/27/20 18:59 Levetiracetam 500 mg/ Dextrose 105 mls @ 400 mls/hr IV Q12HR JARRETT Ondansetron HCl (Zofran) 4 mg IV Q6HR PRN PRN Reason: Nausea And Vomiting Sodium Chloride (Sodium Chloride Flush Syringe 10 Ml) 10 ml IV BID JARRETT Sodium Chloride (Sodium Chloride Flush Syringe 10 Ml) 10 ml IV PRN PRN PRN Reason: LINE FLUSH Stop: 06/06/20 08:59 Physical Examination - Vital Signs Vital Signs: Vital Signs Temp Pulse Resp BP Pulse Ox 97.7 F 86 18 105/70 97 05/27/20 04:51 05/27/20 04:51 05/27/20 04:51 05/27/20 04:51 05/27/20 04:51 - Constitutional General appearance: comfortable - EENT EENT: Present: mucous membranes moist - Respiratory Respiratory: Present: chest non-tender - Cardiovascular Cardiovascular: Present: normal S1, normal S2 Extremities: Present: no peripheral edema bilatateraly - Gastrointestinal Gastrointestinal: Present: normoactive bowel sounds - Neurologic Cranial nerve examination: intact Speech examination: intact Detailed motor examination: grossly full strength in - Psychiatric Psychiatric: Present: mood/affect appropriate, cooperative Results - Laboratory Findings CBC and BMP: 05/27/20 05:19 05/27/20 05:19 Abnormal Lab Findings: Abnormal Labs 05/27/20 05:19 Carbon Dioxide 20 L BUN 4 L Assessment and Plan 1-30 ys old femal presented with X 4 witnessed seizers she is amnestic to the events finding are obtained from the file , according to record she had hx of seizure 5 ys ago but not placed on medication she denied family hx of seizure 2-Normal neurological Exam 3- Sp post labor in last march she is not breast feeding PLAN 1- Review Brain MRI with gd 2- EEG 3- Brain MRV r/o SST 4-NO driving , avoid high places and avoid kitchen . 5- Keppra 500 mg bid po follow up with neurology
[2020-05-27] MEDS ORDERED: ACETAMINOPHEN 325 MG TAB ONE (19:11)
[2020-05-27] MEDS: levETIRAcetam 500 MG in DEXTROSE 5% IN WATER 100 ML IV SCH (23:04)
[2020-05-28 04:19] LABS: Basophils % (Auto) 0.4 % (0.0-1.8); Eosinophils # (Auto) 0.2 K/mm3 (0.0-0.4); Eosinophils % (Auto) 3.7 % (0.0-4.3); Hematocrit 39.8 % (30.3-42.9); Hemoglobin 13.3 gm/dl (10.1-14.3); Lymphocytes # (Auto) 1.5 K/mm3 (1.2-5.4); Lymphocytes % (Auto) 25.4 % (13.4-35.0); Mean Corpuscular HGB Conc 34 % (30-34); Mean Corpuscular Volume 95 fl (79-97); Monocytes # (Auto) 0.4 K/mm3 (0.0-0.8); Monocytes % (Auto) 7.2 % (0.0-7.3); Platelet Count 224 K/mm3 (140-440); Red Blood Count 4.18 M/mm3 (3.65-5.03); Red Cell Distribution Width 13.7 % (13.2-15.2)
[2020-05-28 04:38] LABS: BUN/Creatinine Ratio 19; Blood Urea Nitrogen 13 mg/dL (7-17); Calcium 8.5 mg/dL (8.4-10.2); Hemolysis Index 11
--- NOTE | 2020-05-28 09:23 | Progress Note ---
Assessment and Plan - Patient Problems (1) Seizures Current Visit: Yes Status: Acute Plan to address problem: -UDS pending - Neurology consult - EEG pending - 05/27 MRA:no acute abnormality and no evidence of large vessel occlusion. 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 This can be on a developmental basis or can be associated with mesial temporal sclerosis. There are no signal changes in the adjacent hippocampal region to support the diagnosis of mesial temporal sclerosis, however. Ventricles and cortical sulci are otherwise normal in size and configuration. There is no mass effect - Keppra IV BID - Fall Precautions - Aspiration precaution - Seizures precautions - Supplemental oxygenation as needed (2) HTN (hypertension) Current Visit: Yes Status: Acute Plan to address problem: - BP monitoring per protocol - PRN afterload reduction (3) DVT prophylaxis Current Visit: Yes Status: Acute Plan to address problem: - SCDs while in bed History Interval history: 30 year old female presented with seizures (2 at home and 2 in route with EMS) (03/2020), [place] (age 21) and HTN. Hospitalist Physical - Constitutional Vitals: Temp Pulse Resp BP Pulse Ox 98.0 F 74 18 94/59 100 05/28/20 06:49 05/28/20 06:49 05/28/20 06:49 05/28/20 06:49 05/28/20 06:49 General appearance: Present: no acute distress (very lethergic) HEART Score - HEART Score EKG: Normal Age: < 45 Risk factors: 1-2 risk factors Troponin: < normal limit Results - Labs CBC & Chem 7: 05/28/20 03:50 05/28/20 03:50 Labs: Laboratory Last Values WBC 5.9 K/mm3 (4.5-11.0) 05/28/20 03:50 RBC 4.18 M/mm3 (3.65-5.03) 05/28/20 03:50 Hgb 13.3 gm/dl (10.1-14.3) 05/28/20 03:50 Hct 39.8 % (30.3-42.9) 05/28/20 03:50 MCV 95 fl (79-97) 05/28/20 03:50 MCH 32 pg (28-32) 05/28/20 03:50 MCHC 34 % (30-34) 05/28/20 03:50 RDW 13.7 % (13.2-15.2) 05/28/20 03:50 Plt Count 224 K/mm3 (140-440) 05/28/20 03:50 Lymph % (Auto) 25.4 % (13.4-35.0) 05/28/20 03:50 [place] % (Auto) 7.2 % (0.0-7.3) 05/28/20 03:50 Eos % (Auto) 3.7 % (0.0-4.3) 05/28/20 03:50 Baso % (Auto) 0.4 % (0.0-1.8) 05/28/20 03:50 Lymph # 1.5 K/mm3 (1.2-5.4) 05/28/20 03:50 [place] # 0.4 K/mm3 (0.0-0.8) 05/28/20 03:50 Eos # 0.2 K/mm3 (0.0-0.4) 05/28/20 03:50 Baso # 0.0 K/mm3 (0.0-0.1) 05/28/20 03:50 Seg Neutrophils % 63.3 % (40.0-70.0) 05/28/20 03:50 Seg Neutrophils # 3.7 K/mm3 (1.8-7.7) 05/28/20 03:50 Sodium 142 mmol/L (137-145) 05/28/20 03:50 Potassium 3.6 mmol/L (3.6-5.0) 05/28/20 03:50 Chloride 107.1 mmol/L (98-107) H 05/28/20 03:50 Carbon Dioxide 24 mmol/L (22-30) 05/28/20 03:50 Anion Gap 15 mmol/L 05/28/20 03:50 BUN 13 mg/dL (7-17) 05/28/20 03:50 Creatinine 0.7 mg/dL (0.7-1.2) 05/28/20 03:50 Estimated GFR > 60 ml/min 05/28/20 03:50 BUN/Creatinine Ratio 19 % 05/28/20 03:50 Glucose 132 mg/dL (65-100) H 05/28/20 03:50 Calcium 8.5 mg/dL (8.4-10.2) 05/28/20 03:50 Magnesium 2.00 mg/dL (1.7-2.3) 05/27/20 05:19 HCG, Qual Negative (Negative) 05/27/20 05:19 Quintero/IV: IV Catheter Type [Right INT / Saline Lock Antecubital] Active Medications - Current Medications Current Medications: Generic Name Dose Route Start Last Admin Trade Name Freq PRN Reason Stop Dose Admin Acetaminophen 650 mg 05/27/20 09:00 05/27/20 19:14 Tylenol PO 650 mg Q4H PRN Administration Pain MILD(1-3)/Fever >100.5/ROBIN Levetiracetam 500 mg/ Dextrose 105 mls @ 400 mls/hr 05/27/20 22:00 05/27/20 23:04 IV 400 mls/hr Q12HR JARRETT Administration Ondansetron HCl 4 mg 05/27/20 09:00 Zofran IV Q6HR PRN Nausea And Vomiting Sodium Chloride 10 ml 05/27/20 10:00 Sodium Chloride Flush Syringe 10 Ml IV BID JARRETT Sodium Chloride 10 ml 05/27/20 09:00 Sodium Chloride Flush Syringe 10 Ml IV 06/06/20 08:59 PRN PRN LINE FLUSH
--- NOTE | 2020-05-28 09:29 | Magnetic Resonance Report ---
MRI BRAIN WITHOUT CONTRAST INDICATION / CLINICAL INFORMATION: MAIN. TECHNIQUE: Multiplanar, multisequence MR images of the brain were obtained. Contrast: mL administered intravenously. COMPARISON: None available. FINDINGS: BRAIN / INTRACRANIAL CONTENTS: Temporal horns the lateral ventricles are asymmetrical, left larger th an right. This can be on a developmental basis or can be associated with mesial temporal sclerosis. T here are no signal changes in the adjacent hippocampal region to support the diagnosis of mesial temp oral sclerosis, however. Ventricles and cortical sulci are otherwise normal in size and configuration . There is no mass effect. No evidence of intracranial hemorrhage or extra-axial fluid collection is seen. No significant areas of abnormal brain parenchymal signal intensity are identified. There is no indication of remote cortical infarction. Diffusion weighted scans are negative. There is no indicat ion of acute ischemic injury. The brainstem and cerebellum have an unremarkable appearance. MIDLINE STRUCTURES:No abnormalities are seen to involve the pituitary gland. Pineal region has an unr emarkable appearance. CRANIOCERVICAL JUNCTION: No abnormalities are identified at the craniocervical junction. VASCULAR FLOW-VOIDS: Normal flow-voids are present within the major intracranial vessels. ORBITS: The orbits have an unremarkable appearance. SINUSES / MASTOIDS: There is no indication of inflammatory disease in the paranasal sinuses or mastoi d air cells. ADDITIONAL FINDINGS: None. IMPRESSION: 1. Asymmetry of the temporal horns the lateral ventricles, left larger than right, as described above . 2. Otherwise normal MRI brain without contrast. Signer Name: Tres Ashley MD Signed: 05/28/2020 9:24 AM Workstation Name: [id number]
--- NOTE | 2020-05-28 09:33 | Magnetic Resonance Report ---
MRA HEAD WITHOUT CONTRAST HISTORY: seizure. COMPARISON: none TECHNIQUE: Routine MRA of the head performed. 3-D/MIP reformats postprocessed. CONTRAST: none FINDINGS: MRA HEAD: OVERVIEW: There is no evidence of intracranial stenosis or large vessel occlusion. There is no eviden ce of aneurysm or other vascular malformation. Intracranial vertebral arteries: Mild dominance of the left vertebral artery is noted. Both vertebral arteries contribute to the basilar artery origins. Basilar artery: Basilar artery has a normal appearance. Posterior cerebral arteries: Bilaterally symmetrical posterior cerebral arteries are demonstrated. Intracranial internal carotid arteries: There is no indication of stenosis or other abnormality on th e course the petrous, cavernous, ophthalmic, clinoid and supraclinoid segments of the internal caroti d arteries. Anterior cerebral arteries: Symmetrical A1 segments of the anterior cerebral arteries are demonstrate d. No abnormalities are seen along the course of the A2 segments. Middle cerebral arteries: Normal and symmetrical M1 segments of the middle cerebral arteries are demo nstrated. No abnormalities are seen along the course of the visualized insular and opercular branches . IMPRESSION: 1. No abnormality on MRA head. Signer Name: Tres Ashley MD Signed: 05/28/2020 9:29 AM Workstation Name: [id number]
[2020-05-28] MEDS: levETIRAcetam 500 MG in DEXTROSE 5% IN WATER 100 ML IV SCH (11:14)
[2020-05-28 12:39] VITALS: BP 104/72
--- NOTE | 2020-05-28 13:07 | Discharge Summary ---
<CIARRAPRASHANT HJimmy - Last Filed: 05/28/20 13:13> Providers - Providers Date of Admission: 05/27/20 08:19 Attending physician: MAHAMED PEREZ 05/27/20 08:13 Consult to Physician [CONS] Routine Comment: Consulting Provider: SAHRAN DUARTE Physician Instructions: Reason For Exam: Seizure Primary care physician: PARAPROFESSIONAL INTERPRETER Hospitalization Condition: Stable Hospital course: 30 year old female presented with seizures (2 at home and 2 in route with EMS and was given Ativan) (03/2020), [place] (age 21) and HTN. She had an MRA which showed no large vessel occlusion and MRI of he brain that showed no acute abnormality. She has been started on Keppra 500 mg tab daily. She has been instructed to followup with her primary care physician and a neurologist outpatient. She has been instructed on no driving until cleared by her PCP. Disposition: TO HOME OR SELFCARE - Discharge Diagnoses (1) Seizures Status: Acute (2) HTN (hypertension) Status: Chronic Core Measure Documentation - Palliative Care Palliative Care/ Comfort Measures: Not Applicable - Core Measures Any of the following diagnoses?: none Exam - Constitutional Vitals: Temp Pulse Resp BP Pulse Ox 98.3 F 74 18 104/72 100 05/28/20 12:12 05/28/20 06:49 05/28/20 12:12 05/28/20 12:12 05/28/20 06:49 General appearance: Present: no acute distress - EENT Eyes: Present: PERRL, EOM intact ENT: hearing intact, clear oral mucosa - Neck Neck: Present: supple, normal ROM - Respiratory Respiratory effort: normal Respiratory: bilateral: CTA - Cardiovascular Rhythm: regular Heart Sounds: Present: S1 & S2 - Extremities Extremities: no ischemia, pulses intact, pulses symmetrical, No edema, normal temperature, normal color Peripheral Pulses: within normal limits - Abdominal General gastrointestinal: Present: soft, non-tender, normal bowel sounds - Integumentary Integumentary: Present: clear, warm - Musculoskeletal Musculoskeletal: strength equal bilaterally - Psychiatric Psychiatric: appropriate mood/affect, intact judgment & insight, cooperative - Neurologic Neurologic: CNII-XII intact, no focal deficits, moves all extremities - Allied Health Allied health notes reviewed: nursing Plan Activity: no driving until cleared by PCP Diet: regular Follow up with: PRIMARY CARE, [Primary Care Provider] - 7 Days SHARAN DUARTE MD [Staff Physician] - 7 Days Prescriptions: Aspirin EC [Halfprin EC] 81 mg PO QDAY 30 Days #30 tab levETIRAcetam [Keppra TAB] 500 mg PO BID 30 Days #60 tablet <MAHAMED PEREZ - Last Filed: 05/29/20 07:28> Providers - Providers Date of Admission: 05/27/20 08:19 Attending physician: MAHAMED PEREZ 05/27/20 08:13 Consult to Physician [CONS] Routine Comment: Consulting Provider: SHARAN DUARTE Physician Instructions: Reason For Exam: Seizure Primary care physician: PARAPROFESSIONAL INTERPRETER Core Measure Documentation - Palliative Care Palliative Care/ Comfort Measures: Not Applicable - Core Measures Any of the following diagnoses?: none Exam - Constitutional Vitals: Temp Pulse Resp BP Pulse Ox 98.3 F 74 18 104/72 100 05/28/20 12:12 05/28/20 06:49 05/28/20 13:41 05/28/20 12:12 05/28/20 06:49 Plan Activity: advance as tolerated
== END 2020-05-28 16:09 | disposition home or self-care (01) ==
LOC: ED 04:19 → 4A 08:19
PROVIDERS: ADMIT Internal Medicine; ATTEND Hospitalist
DX: O99.355 Diseases of the nervous system complicating the puerperium (principal); R56.9 Unspecified convulsions; O99.43 Diseases of the circulatory system complicating the puerperium; I10 Essential (primary) hypertension; I25.2 Old myocardial infarction; Z79.899 Other long term (current) drug therapy
CPT/HCPCS: 36415; 70450; 70544; 70551; 80048; 83735; 84703; 85025; 95819; 96374; 96376; 99285; G0378; J1953